=== PATIENT | male | born 1940 | race Caucasian/White ===

== ENCOUNTER 2021-02-02 11:22 | Day surgery (SDC) | payer BC, SELFPAY ==
[~2021-02-02] VITALS: Ht 162.6 cm; Wt 65.8 kg
[~2021-02-02 11:22] MED LIST: CEFAZOLIN SOD 1 GM in D5W 50 ML IV ONE
[2021-02-02] MEDS ORDERED: fentaNYL CITRATE/PF 100 MCG/2 ML AMP IVP PRN ×2 (11:45)
[2021-02-02] MEDS ORDERED: METOCLOPRAMIDE HCL 10 MG/2 ML VIAL IVP PRN (11:45)
[2021-02-02] MEDS ORDERED: ONDANSETRON HCL 4 MG/2 ML VIAL IVP PRN ×2 (11:45→17:15)
[2021-02-02] MEDS ORDERED: POLYMYXIN 500,000/BACIT.10,000 UNITS in NS IRR 1 L IR ONE ×2 (13:14→16:25)
[2021-02-02 14:09] LABS: INR 1.1 (0.80-1.20)
[2021-02-02] MEDS ORDERED: PHENYLEPHRINE HCL 10 MG/ML VIAL (NEOSYNEPHRINE) IV ONE (15:45)
[2021-02-02] MEDS ORDERED: PROPOFOL 200MG/ 20ML VIAL (DIPRIVAN) IV ONE (15:45)
[2021-02-02] MEDS ORDERED: fentaNYL CITRATE/PF 100 MCG/2 ML AMP IVP ONE (15:45)
[2021-02-02] MEDS ORDERED: MIDAZOLAM HCL 5 MG/5 ML VIAL IVP ONE (15:45)
[2021-02-02] MEDS ORDERED: SEVOFLURANE 15 MIN GAS INH ONE (15:45)
[2021-02-02] MEDS ORDERED: LR 1,000 ML IV.SOLN IV ONE (15:45)
[2021-02-02] MEDS ORDERED: BUPIVACAINE /PF 0.25% 30 ML VIAL INJ ONE (15:45)
[2021-02-02] MEDS ORDERED: HYDROcodone/ACETAMIN 5-325 MG TAB (NORCO/ VICODIN) PO PRN ×2 (17:15)
[2021-02-02] MEDS: CEFAZOLIN 1 GM IVPB PREMIX 50 ML IV SCH (17:15)
[2021-02-02] MEDS: D5/0.45 NS 1,000 ML IV SCH (17:15)
[2021-02-02] MEDS ORDERED: ACETAMINOPHEN 325 MG TABLET PO PRN (17:15)
[2021-02-02 19:00] VITALS: BP_SYST 119
--- NOTE | 2021-02-02 19:05 | NUR ---
OPENING NOTES PATIENT RESTING, HOB ELEVATED, NO RESPIRATORY DISTRESS NOTED. POST OP VITALS CONTINUED FROM AM SHIFT. WILL CONTINUE TO MONITOR. BED ALARM ON, BED AT LOWEST POSITION, BED LOCKED. ASPIRATION, RESPIRATORY, SAFETY, AND FALL PRECAUTIONS IN PLACE. DISCUSSED PLAN OF CARE WITH PATIENT. RECEIVED REPORT THAT OK TO D/C HOME IN AM, AND TO HOLD COUMADIN, AND TO FOLLOW PATIENT'S COUMADIN SCHEDULE, WHICH IS MORNING. DISCUSSED PLAN OF CARE WITH PATIENT. WILL CONTINUE TO MONITOR.
[2021-02-03] VITALS: BP_SYST 120
[2021-02-03] MEDS: CEFAZOLIN 1 GM IVPB PREMIX 50 ML IV SCH (01:00)
[2021-02-03] MEDS: D5/0.45 NS 1,000 ML IV SCH (05:24)
--- NOTE | 2021-02-03 05:26 | NUR ---
CHANGE OF IV FLUIDS. NEW IV FLUIDS HUNG. WILL CONTINUE TO PROVIDE CARE.
--- NOTE | 2021-02-03 06:45 | NUR ---
CLOSING NOTES PATIENT RESTING, HOB SLIGHTLY ELEVATED, NO DISTRESS NOTED. CALL LIGHT WITHIN REACH, PATIENT USED CALL LIGHT AND PHONE THROUGHOUT SHIFT. BED ALARM ON, BED AT LOWEST POSITION, BED LOCKED, SCDS ON. ASPIRATION, RESPIRATORY, SAFETY, AND FALL PRECAUTIONS IN PLACE THROUGHOUT SHIFT. ALL NEEDS MET THROUGHOUT SHIFT. WILL ENDORSE CARE TO ONCOMING SHIFT.
--- NOTE | 2021-02-03 06:51 | NUR ---
Nutrition Update Mauro Scale 18 noted. Pt admitted for Unilateral Inguinal Hernia w/ Obstruction w/o Gangrene Diet: Regular BMI: 24.9 kg/m2 RD to follow per nutrition care standards.
--- NOTE | 2021-02-03 08:00 | NUR ---
OPENING NOTES RESTING IN BED, ALERT AND ORIENTED. NO DIFFICULTY OF BREATHING ON ROOM AIR. DENIES ANY PAIN. V FLUIDS INFUSING WELL. ENCOURAGED TO USE INCENTIVE SPIROMETER. FALL AND SAFETY CHECKS DONE. WILL MONITOR.
[2021-02-03 08:16] VITALS: BP_SYST 146
[2021-02-03] MEDS ORDERED: LOSA100T3 PO (08:32)
[2021-02-03] MEDS ORDERED: COR25 PO (08:52)
[2021-02-03] MEDS ORDERED: SIMV20TA2 PO (08:52)
[2021-02-03] MEDS ORDERED: HYG25 PO (08:52)
[2021-02-03] MEDS ORDERED: TAMS-11 PO (08:52)
[2021-02-03] MEDS ORDERED: PHEN100C4 PO (08:52)
[2021-02-03] MEDS ORDERED: WARF3TAB59 PO (08:52)
[2021-02-03] MEDS ORDERED: POTA8TAB4 PO (08:52)
[2021-02-03] MEDS ORDERED: FURO-149 PO (08:52)
[2021-02-03] MEDS ORDERED: PLE5 PO (08:52)
[2021-02-03 11:17] VITALS: BP_SYST 146
[2021-02-03] MEDS ORDERED: PHENYTOIN 100 MG CAPSULE PO ONE (11:30)
[2021-02-03] MEDS ORDERED: CHLORTHALIDONE 25 MG TABLET (HYGROTON) PO ONE (11:30)
[2021-02-03] MEDS ORDERED: TAMSULOSIN HCL 0.4 MG CAP PO ONE (11:30)
[2021-02-03] MEDS ORDERED: FUROSEMIDE 40 MG TABLET PO ONE (11:30)
[2021-02-03] MEDS ORDERED: CARVEDILOL 25 MG TABLET (COREG) PO ONE (11:30)
[2021-02-03 11:36] VITALS: BP_SYST 119
[2021-02-03] MEDS ORDERED: POTASSIUM CHLORIDE 10 MEQ TAB.PRT.SR PO ONE (12:30)
[2021-02-03] MEDS ORDERED: amLODIPine BESYLATE 10 MG TABLET PO ONE (12:30)
--- NOTE | 2021-02-03 12:50 | NUR ---
D/C Patient Patient given medication reconciliation form and D/C instructions. Exit Care provided. Patient's grandsonJean-Pierre verbalized understanding. MD discussed with patient the results and treatment provided. Discharge to home via wheelchair. Patient in stable condition, ID band removed. IV catheter removed, intact and dressing applied, no active bleeding. Grandson requested to keep the dressing in place because the patient might pick on the steri strips as he has moments of confusion. Instructed to remove it before shower and he verbalized understanding. All belongings sent with patient.
[2021-02-03] MEDS ORDERED: POTASSIUM CHLORIDE 10 MEQ TAB.PRT.SR PO SCH (15:00)
[2021-02-03] MEDS ORDERED: PHENYTOIN 100 MG CAPSULE PO SCH (21:00)
[2021-02-03] MEDS ORDERED: LOSARTAN POTASSIUM 50 MG TABLET (COZAAR) PO SCH (21:00)
[2021-02-03] MEDS ORDERED: SIMVASTATIN 20 MG TABLET PO SCH (21:00)
[2021-02-04] MEDS ORDERED: FUROSEMIDE 40 MG TABLET PO SCH (09:00)
[2021-02-04] MEDS ORDERED: TAMSULOSIN HCL 0.4 MG CAP PO SCH (09:00)
[2021-02-04] MEDS ORDERED: CHLORTHALIDONE 25 MG TABLET (HYGROTON) PO SCH (09:00)
[2021-02-04] MEDS ORDERED: amLODIPine BESYLATE 10 MG TABLET PO SCH (09:00)
[2021-02-04] MEDS ORDERED: CARVEDILOL 25 MG TABLET (COREG) PO SCH (09:00)
== END 2021-02-03 12:47 | disposition home or self-care (01) ==
LOC: SDS 11:22 → STU 11:22 → SDS 11:25 → SMU 11:25 → SDS 18:39 → UNDOADMIN 18:42 → STU 18:42 → SMU 18:55 → STU 19:38 → SMU 19:38 → SDS 02-03 12:47
PROVIDERS: ATTEND Colon & Rectal Surgery
DX: K40.30 Unilateral inguinal hernia, with obstruction, without gangrene, not specified as recurrent (principal); Z20.822 Contact with and (suspected) exposure to COVID-19; Z79.01 Long term (current) use of anticoagulants; Z79.899 Other long term (current) drug therapy
CPT/HCPCS: 36415; 49507; 85610; C1781; J0690 ×2; J7060; U0003; J2250; J2370; J2704; J3010; J3490; J7120